=== PATIENT | female | born 1990 | race African-American/Black ===

== ENCOUNTER 2017-12-31 16:08 | Emergency (ER) | payer OTHER ==
[2017-12-31 16:22] VITALS: TEMP 97.8; BMI 33.0
--- NOTE | 2017-12-31 16:48 | PDOC ---
History of Present Illness - General Chief Complaint: Pain Stated Complaint: Chest Pain Time Seen by Provider: 12/31/17 16:22 History Source: Patient Exam Limitations: No Limitations - History of Present Illness Initial Comments: 12/31/17 16:42 27 yo female no sig pmh presents to the ED for 2 weeks of chest pain and 1 day of nausea and SORIANO. Of note, patient seen in an ED over 1 year ago, ekg done and told she had an "abnormal ekg" but does not remember any more details regarding the findings. Pt does not have a PCP and does not take any medications regularly. SORIANO is located on the forehead, described as intermittent throbbing without changes in vision or speech, weakness or sensory changes. CP is located substernally, described as pressure, non radiating, non exertion, no exacerbating findings. Pt states she has hx of anxiety, not formally diagnosed. No family hx of sudden cardiac Past History - Past Medical History Allergies/Adverse Reactions: Allergies Allergy/AdvReac Type Severity Reaction Status Date / Time No Known Allergies Allergy Verified 12/31/17 16:16 Home Medications: Ambulatory Orders NK [No Known Home Medication] 12/31/17 COPD: No - Suicide/Smoking/Psychosocial Hx Smoking History: Never smoked Review of Systems - Review of Systems Constitutional: No: Chills, Fever HEENTM: No: Blurred Vision Respiratory: No: Shortness of Breath Cardiac (ROS): Yes: Chest Pain ABD/GI: No: Constipated, Diarrhea : No: Burning, Dysuria, Flank Pain Musculoskeletal: No: Back Pain Neurological: Yes: Headache. No: Numbness, Paresthesia, Weakness, Unsteady Gait , Dizziness Psychiatric: Yes: Anxiety *Physical Exam - Vital Signs Last Vital Signs Temp Pulse Resp BP Pulse Ox 97.8 F 81 16 153/96 99 12/31/17 16:21 12/31/17 16:21 12/31/17 16:21 12/31/17 16:21 12/31/17 16:21 - Physical Exam General Appearance: Yes: Nourished, Appropriately Dressed. No: Apparent Distress HEENT: positive: EOMI Respiratory/Chest: positive: Lungs Clear, Normal Breath Sounds. negative: Crackles, Wheezing Cardiovascular: positive: Regular Rhythm, Regular Rate, S1, S2, Other (pain reproducible with palpation to sternum). negative: Edema, JVD, Murmur Vascular Pulses: Dorsalis-Pedis (R): 4+, Doralis-Pedis (L): 4+ Gastrointestinal/Abdominal: positive: Normal Bowel Sounds, Flat, Soft. negative : Pulsatile Mass, Distended, Guarding, Rebound, Tenderness Musculoskeletal: negative: CVA Tenderness Extremity: positive: Normal Capillary Refill Integumentary: positive: Normal Color, Dry, Warm Neurologic: positive: game designer II-XII NML intact, Fully Oriented, Alert, Normal Mood/ Affect, Normal Response, Motor Strength 5/5. negative: Facial Droop, Numbness, Sensory Deficit, Confused, Disoriented ED Treatment Course - LABORATORY CBC & Chemistry Diagram: 12/31/17 17:20 12/31/17 17:20 Medical Decision Making - Medical Decision Making 12/31/17 18:17 27 yo female no significant pmh presents to the ED with 1 day SORIANO and 2 weeks CP. PE: see note Vitals stable DDX: ACS (ekg normal, trops neg), PE (normal D-dimer), costochondritis, GERD UA negative, negative preg CXR normal, no acute findings (ED read) Patient admits to increased stress and hx of anxiety. CP and SORIANO Likely anxiety related, improved with medications. Patient SORIANO and CP improved after IV Tylenol and Reglan Pt does not have PCP, will give referral to resident clinic and D/C with strict return precautions and OTC tylenol for continued pain *DC/Admit/Observation/Transfer Diagnosis at time of Disposition: Head ache Qualifiers: Headache type: unspecified Headache chronicity pattern: unspecified pattern Intractability: not intractable Qualified Code(s): R51 - Headache Chest pain Qualifiers: Chest pain type: unspecified Qualified Code(s): R07.9 - Chest pain, unspecified - Discharge Dispostion Disposition: HOME Condition at time of disposition: Stable Decision to Admit order: No - Referrals Referrals: [facility] [place] [Provider Group] - Patient Instructions Printed Discharge Instructions: DI for Atypical Chest Pain, DI for Headache Additional Instructions: Please make appointment with the Primary Care Clinic office referred to you within the next 2 days. Please take over the counter Tylenol and Motrin for your headaches and chest pain as needed. Return to the Emergency room for new or worsening symptoms including but not limited to: changes in vision or speech , one sided weakness, severe chest pain. Thank you - Post Discharge Activity
[2017-12-31] MEDS ORDERED: IBUPROFEN 600 MG TABLET (FP) PO ONE (16:49)
--- NOTE | 2017-12-31 16:56 | PDOC ---
Attending Attestation - HPI HPI: 12/31/17 17:19 The patient is a 27 year old female no significant past medical history who presents to the ED for 2 weeks of intermittent chest pain, followed by an episode of diarrhea 3 days ago with 2 days of associated nausea, frontal headache, and decreased appetite. She states her chest pain comes and goes, localized to the middle of her chest, lasting 3-4 hours at a time without any exacerbating or alleviating factors of the pain. She reportedly has been eating "popcorn for the past few days and soup on Thursday, but not much else." She reports an episode of nonblood, watery stool on Thursday for which she took Earline Carroll and denies any recurring episodes of diarrhea. She reports a frontal headache which was intermittent yesterday, but constant since 7am today. She denies taking medications for chest pain or headache. She denies a history of chest pain in the past. - Physicial Exam PE: 12/31/17 17:39 GENERAL: The patient is in no acute distress. HEAD: Normal with no signs of trauma. EYES: PERRLA, EOMI, sclera anicteric, conjunctiva clear. ENT: Ears normal, nares patent, oropharynx clear without exudates. Moist mucous membranes. NECK: Normal range of motion, supple without lymphadenopathy, JVD, or masses. LUNGS: Breath sounds equal, clear to auscultation bilaterally. No wheezes, and no crackles. HEART:Regular rate and rhythm, normal S1 and S2 without murmur, rub or gallop. ABDOMEN: Soft, nontender, normoactive bowel sounds. No guarding, no rebound. No masses palpable. EXTREMITIES: Normal range of motion, no edema. No clubbing or cyanosis. No erythema, or tenderness. NEUROLOGICAL: Cranial nerves II through XII grossly intact. Normal speech. No focal neurological deficits. MUSCULOSKELETAL: Back non-tender to palpation, no CVA tenderness SKIN: Warm, Dry, normal turgor, no rashes or lesions noted. - Medical Decision Making 12/31/17 17:39 Documentation prepared by Andreina Thomas, acting as regional medical director for Caty Rodriguez MD <Andreina Thomas - Last Filed: 12/31/17 17:19> - Resident Resident Name: Richar Mccormick - ED Attending Attestation I have performed the following: I have examined & evaluated the patient, The case was reviewed & discussed with the resident, I agree w/resident's findings & plan, Exceptions are as noted - Medical Decision Making 27 yo F presenting to the ER with a complaint of chest pain, sharp, located in the center of the chest, no radiation, no shortness of breath Pain has been intermittent, lasting several hours and then self resolving Not related to movement or deep breath No recent travel No heavy lifting No OCPs No tobacco use Pt had nausea and diarrhea four days ago Pt had diarrhea three days ago Pt had a headache that began yesterday, gradual onset, right frontal, no diffuse pain No neck pain or stiffness Pt is wearing sunglasses but she has been doing this for "a while" because she has light sensitivity (even before getting this headache) Pt is in the ER because her mother and aunt suggested that she come to the ER DD: Chest pain - ACS, PE, Pneumothorax, Pleural effusion, Pneumonia Headache - tension, migraine, unlikely SAH or intracranial mass EKG - SR rate of 63bpm, axis nml, no st elevation or depression, (+) artifact at baseline, t wave inverted v2 Laboratory Tests 12/31/17 12/31/17 12/31/17 17:20 17:20 17:20 WBC 5.1 Hgb 12.8 Hct 37.4 Plt Count 242 D-Dimer 474 BUN 8 Creatinine 0.8 Creatine Kinase 102 Troponin I < 0.02 Urine Ketones Urine Blood Ur Leukocyte Esterase Urine HCG, Qual 12/31/17 12/31/17 18:00 18:00 WBC Hgb Hct Plt Count D-Dimer BUN Creatinine Creatine Kinase Troponin I Urine Ketones Negative Urine Blood Negative Ur Leukocyte Esterase Negative Urine HCG, Qual Negative 12/31/17 18:24 Trop neg, D dimer negative CXR - negative Pt reports complete pain relief Requesting food Pt po challenged in the ER with no nausea Will discharge to home <Caty Rodriguez - Last Filed: 12/31/17 18:42>
[2017-12-31] MEDS ORDERED: METOCLOPRAMIDE HCL INJECTION 10 MG/2 ML VIAL IVPUSH ONE (17:05)
[2017-12-31] MEDS ORDERED: ACETAMINOPHEN 1000 MG/100 ML VIAL (NON FORMULARY) IVPB ONE (17:05)
[2017-12-31] MEDS ORDERED: METOCLOPRAMIDE HCL INJECTION 10 MG/2 ML VIAL ONE (17:15)
[2017-12-31] MEDS ORDERED: ACETAMINOPHEN INJECTION 100 ML IVPB ONE (17:15)
[2017-12-31 17:32] LABS: BASO % 0.7 % (0-2.0); EOS % 0.6 % (0-4.5); HEMATOCRIT 37.4 % (32.4-45.2); HEMOGLOBIN 12.8 GM/dL (10.7-15.3); LYMPH % 51.6 % (8-40); MCH 28.8 pg (25.7-33.7); MCHC 34.1 g/dl (32.0-36.0); MEAN CELL VOLUME 84.4 fl (80-96); MEAN PLT VOLUME 8.4 fl (7.5-11.1); MONO % 6.5 % (3.8-10.2); NEUT % 40.6 % (42.8-82.8); PLATELET COUNT 242 K/MM3 (134-434); RBC 4.43 M/mm3 (3.60-5.2); RDW 15.3 % (11.6-15.6); WHITE BLOOD COUNT 5.1 K/mm3 (4.0-10.0)
[2017-12-31 17:57] LABS: ALBUMIN 3.6 g/dl (3.4-5.0); ALK PHOS 76 U/L (45-117); ANION GAP 9 MMOL/L (8-16); BILIRUBIN,TOTAL 0.4 mg/dL (0.2-1); BLOOD UREA NITROGEN 8 mg/dL (7-18); CALCIUM 8.5 mg/dL (8.5-10.1); CHLORIDE 106 mmol/L (98-107); CO2 26 mmol/L (21-32); CREATININE 0.8 mg/dL (0.55-1.3); GLUCOSE,RANDOM 84 mg/dL (74-106); POTASSIUM 3.7 mmol/L (3.5-5.1); SGOT/AST 20 U/L (15-37); SGPT/ALT 21 U/L (13-61); SODIUM 140 mmol/L (136-145); TOT PROT 8.1 g/dl (6.4-8.2)
[2017-12-31 18:18] LABS: URINE APPEARANCE SLCLOUDY; URINE BILIRUBIN NEGATIVE (<2.0 mg/dL); URINE COLOR LTYELLOW; URINE GLUCOSE (UA) NEGATIVE (NEGATIVE); URINE KETONE NEGATIVE (NEGATIVE); URINE LEUK ESTERASE NEGATIVE (NEGATIVE); URINE NITRITE NEGATIVE (NEGATIVE); URINE PROTEIN NEGATIVE (NEGATIVE); URINE UROBILINOGEN NEGATIVE mg/dL (0.2-1.0)
[2017-12-31 19:11] VITALS: BP 108/63; PULSE 76
--- NOTE | 2018-01-01 10:01 | EKG ---
Test Reason : Blood Pressure : / mmHG Vent. Rate : 063 BPM Atrial Rate : 063 BPM P-R Int : 140 ms QRS Dur : 082 ms QT Int : 390 ms P-R-T Axes : 016 067 026 degrees QTc Int : 399 ms POOR DATA QUALITY, INTERPRETATION MAY BE ADVERSELY AFFECTED NORMAL SINUS RHYTHM WITH SINUS ARRHYTHMIA POSSIBLE LEFT ATRIAL ENLARGEMENT NONSPECIFIC ST AND T WAVE ABNORMALITY ABNORMAL ECG NO PREVIOUS ECGS AVAILABLE Confirmed by TRISH LINO, MATEO ([id number]) on 01/01/2018 10:00:48 AM Referred By: Confirmed By:MATEO CHAMBERS MD
== END 2017-12-31 19:15 | disposition home or self-care (01) ==
LOC: JER 16:08
PROC: 3E033NZ Introduction of Analgesics, Hypnotics, Sedatives into Peripheral Vein, Percutaneous Approach (ICD-10-PCS; principal; 2017-12-31)
PROC: 3E033GC Introduction of Other Therapeutic Substance into Peripheral Vein, Percutaneous Approach (ICD-10-PCS; 2017-12-31)
DX: R07.9 Chest pain, unspecified (principal); R51 Headache
CPT/HCPCS: 36415; 71046-TC-FY; 80053; 81003; 82550; 84484; 84703; 85025; 85379; 93005; 93010; 99284-25; J0131

== ENCOUNTER 2019-10-29 19:40 | Emergency (ER) | payer OTHER ==
[2019-10-29 19:46] VITALS: BMI 39.4
--- OUTSIDE RECORDS SUMMARY | 2019-10-29 19:52 | XMS ---
:1990 Author Organization [facility] Support Name Relationship Address Phone LICENSE LOGISTIC Unavailable [address] [place] [address] [place] [address] [phone] [place] [address] JEFF ELIZALDE MOTHER [address] [place] [address] Re-disclosure Warning The records that you are about to access may contain information from federally- assisted alcohol or drug abuse programs. If such information is present, then the following federally mandated warning applies: This information has been disclosed to you from records protected by federal confidentiality rules (42 CFR part 2). The federal rules prohibit you from making any further disclosure of this information unless further disclosure is expressly permitted by the written consent of the person to whom it pertains or as otherwise permitted by 42 CFR part 2. A general authorization for the release of medical or other information is NOT sufficient for this purpose. The Federal rules restrict any use of the information to criminally investigate or prosecute any alcohol or drug abuse patient.The records that you are about to access may contain highly sensitive health information, the redisclosure of which is protected by Article 27-F of the [place] Public Health law. If you continue you may haveaccess to information: Regarding HIV / AIDS; Provided by facilities licensed or operated by the [place] Office of Mental Health; or Provided by the [place] Office for People With Developmental Disabilities. If such information is present, then the following [place] [facility] mandated warning applies: This information has been disclosed to you from confidential records which are protected by state law. State law prohibits you from making any further disclosure of this information without the specific written consent of the person to whom it pertains, or as otherwise permitted by law. Any unauthorized further disclosure in violation of state law may result in a fine or detention sentence or both. A general authorization for the release of medical or other information is NOT sufficient authorization for further disclosure. Insurance Providers Payer name Policy type Policy ID Covered Covered constitution party's Policy P aliya / Coverage constitution party ID relationship to [employer] type [id number] HEALTH CARE HMO/POS/EPO
[2019-10-29] MEDS ORDERED: ONDANSETRON 4 MG/2 ML VIAL IVPUSH ONE (20:37)
[2019-10-29] MEDS ORDERED: MECLIZINE HCL 25 MG TABLET (FP) PO ONE (20:37)
[2019-10-29] MEDS ORDERED: SODIUM CHLORIDE 0.9% 500 ML INFUS.BAG IV ONE (20:39)
[2019-10-29] MEDS ORDERED: MECLIZINE HCL 25 MG TABLET (FP) ONE (20:42)
[2019-10-29 20:50] LABS: BASO % 0.3 % (0-2.0); EOS % 0.7 % (0-4.5); HEMATOCRIT 37.1 % (32.4-45.2); LYMPH % 44.5 % (8-40); MCH 27.2 pg (25.7-33.7); MCHC 32.4 g/dl (32.0-36.0); MEAN CELL VOLUME 84.1 fl (80-96); MEAN PLT VOLUME 8.5 fl (7.5-11.1); NEUT % 46.5 % (42.8-82.8); PLATELET COUNT 292 K/MM3 (134-434); RBC 4.41 M/mm3 (3.60-5.2); RDW 16.3 % (11.6-15.6); WHITE BLOOD COUNT 6.2 K/mm3 (4.0-10.0)
--- NOTE | 2019-10-29 20:52 | PDOC ---
History of Present Illness - General Chief Complaint: Lightheaded Stated Complaint: VOMITING AND DIZZENESS Time Seen by Provider: 10/29/19 20:13 History Source: Patient Exam Limitations: No Limitations - History of Present Illness Initial Comments: 10/29/19 20:42 29F PMH HTN presenting with dizziness described as room spinning that is worse and more consistent today than previous. Has had similar but less severe symptoms on/off since June but has not been eval'd out of fear of covid. Episodes are related to changing position, particularly sitting up, and typically transient. Today symptoms have persisted throughout the day and accompanied by nausea and vomiting. Has not tried any medications or alleviated treatments. Denies f/c, headaches, chagnes in vision, hearing, numbness, tingling, weakness, vaginal bleeding, discharge, cough, sore throat, runny nose. Past History - Medical History Allergies/Adverse Reactions: Allergies Allergy/AdvReac Type Severity Reaction Status Date / Time No Known Allergies Allergy Verified 10/29/19 19:46 Home Medications: Ambulatory Orders Meclizine HCl 25 mg PO BID PRN #20 tablet 10/29/19 Ondansetron [Zofran *Odt*] 4 mg SL TID PRN #21 od.tablet 10/29/19 COPD: No - Reproductive History Is Patient Now?: No - Psycho-Social/Smoking History Smoking History: Never smoked - Substance Abuse Hx (Audit-C & DAST Scrn) How often the patient has a drink containing alcohol: 2-4 times / month Score: In Men: 4 or > Positive; In Women: 3 or > Positive: 2 Screen Result (Pos requires Nsg. Audit-10AR): Negative Review of Systems - Review of Systems Comments:: 10/30/19 08:48 CONSTITUTIONAL: Denies F / C HEENT: + dizziness. Denies headache, changes in vision / hearing, diplopia, blurry vision, sore throat, rhinorrhea RESP: Denies SOB, cough CARD: Denies chest pain, palpitations GI: + N / V : Denies dysuria, hematuria NEURO: Denies numbness, tingling, weakness MSK: Denies back pain SKIN: Denies rashes *Physical Exam - Vital Signs Last Vital Signs Temp Pulse Resp BP Pulse Ox 97 F L 85 18 148/97 99 10/29/19 19:42 10/29/19 19:42 10/29/19 19:42 10/29/19 19:42 10/29/19 19:42 - Physical Exam 10/30/19 08:48 GEN: Well appearing, NAD, comfortable. AAOx3. HEENT: NC/AT, EOMI, PERRL, CN II - XII grossly intact. No facial asymmetry. Moist mucous membranes. Normal voice. Supple neck w/ FROM. CV: S1/S2, RRR, no m/r/g LUNG: CTAB, no wheezes, crackles, rales, rhonchi. GI: Soft, ndnt, +BS, no guarding, no rebound. No masses. Neg CVAT b/l. MSK: No obvious deformities of all extremities. SKIN: Warm, dry, no rashes appreciated. PSYCH: Normal mood and affect. NEURO: Moving all extremities well. 5/5 strength UE and LE b/l. Symmetric sensation. Right sided kasia-hallpike testing induced symptoms; no nystagmus; patient proceeded to vomit. ED Treatment Course - LABORATORY CBC & Chemistry Diagram: 10/29/19 20:47 10/29/19 20:47 Medical Decision Making - Medical Decision Making 10/30/19 08:48 29F w/ episodic position dependent vertigo since June 2019 that is worse today w/ nausea and vomiting. Neuro intact. Reproducible symptoms with kasia-hallpike to the right. Likely BPPV; unlikely intracranial pathology given H&P; less likely metabolic issue or - CBC, CMP, - Symptomatic control - reassess, PO challenge, ambulate - plan to DC home w/ meds and neuro f/u 10/29/19 22:07 Pt feeling significant relief of symptoms s/p meds PO tolerant Ambulates w/ normal gait Discussed plan w/ patient; amenable to discharge w/ neuro f/u; return precautions provided, Rx sent. Questions and concerns addressed. Discharge - Discharge Information Problems reviewed: Yes Clinical Impression/Diagnosis: Vertigo Condition: Stable Disposition: HOME - Admission No - Additional Discharge Information Prescriptions: Meclizine HCl 25 mg PO BID PRN #20 tablet PRN Reason: Vertigo Ondansetron [Zofran *Odt*] 4 mg SL TID PRN #21 od.tablet PRN Reason: Nausea - Follow up/Referral Referrals: Miki Mills MD [Staff Physician] - - Patient Discharge Instructions Patient Printed Discharge Instructions: Benign Paroxysmal Positional Vertigo Additional Instructions: We are sending medications to your pharmacy that will help with your symptoms. Please take as directed when you are experiencing symptoms. Follow up with your Primary Care Doctor regarding this ED visit in the next 14 days. Follow up with Neurology in the next 14 days. We have referred you to Dr. Mills, call the number attached to schedule an appointment. Return to the nearest Emergency Department if you experience new or worsening symptoms - Post Discharge Activity Work/Back to School Note: Back to Work
[2019-10-29 21:18] LABS: ALBUMIN 3.5 g/dl (3.4-5.0); BILIRUBIN,TOTAL 0.3 mg/dL (0.2-1); BLOOD UREA NITROGEN 12.2 mg/dL (7-18); CALCIUM 9.1 mg/dL (8.5-10.1); CREATININE 0.9 mg/dL (0.55-1.3); POTASSIUM 3.9 mmol/L (3.5-5.1); TOT PROT 8.6 g/dl (6.4-8.2)
--- NOTE | 2019-10-29 22:17 | PDOC ---
Documentation entered by Elena Lao SCRIBE, acting as scribe for Peg Trejo MD. Peg Trejo MD: This documentation has been prepared by the giovanniibShilo allred Lincy, SCRIBE, under my direction and personally reviewed by me in its entirety. I confirm that the documentation accurately reflects all work, treatment, procedures, and medical decision making performed by me. Attending Attestation - Resident Resident Name: Myke Jimenez - HPI HPI: 10/29/19 21:22 The patient is a 29-year-old female with a past medical history significant for HTN who presents to the emergency department with dizziness. The patient reports several weeks of dizziness with the change of position, that worsened today with more frequent episodes, associated with nausea and vomiting. Denies taking any medication for the symptoms. Denies fever, chills, headache, visual changes. Denies any URI symptoms. - Physicial Exam PE: 10/29/19 21:50 10/29/19 21:53 Gen: alert, NAD HEENT: normocephalic, atraumatic NEuro: alert and oriented x 3, CN grossly intact. - Medical Decision Making 10/29/19 21:54 Pt presents to the ED complaining of vertigo made worse by turning her head. Has been experiencing mild and transient intermittent symptoms for three weeks, but symptoms became severe today. Feels greatly improved after meclizine. Very little concern for central vertigo. Will discharge home with ENT follow up. Discharge - Discharge Information Problems reviewed: Yes Clinical Impression/Diagnosis: Vertigo Condition: Stable Disposition: HOME - Additional Discharge Information Prescriptions: Meclizine HCl 25 mg PO BID PRN #20 tablet PRN Reason: Vertigo Ondansetron [Zofran *Odt*] 4 mg SL TID PRN #21 od.tablet PRN Reason: Nausea - Follow up/Referral Referrals: Miki Mills MD [Staff Physician] - - Patient Discharge Instructions Patient Printed Discharge Instructions: Benign Paroxysmal Positional Vertigo Additional Instructions: We are sending medications to your pharmacy that will help with your symptoms. Please take as directed when you are experiencing symptoms. Follow up with your Primary Care Doctor regarding this ED visit in the next 14 days. Follow up with Neurology in the next 14 days. We have referred you to Dr. Mills, call the number attached to schedule an appointment. Return to the nearest Emergency Department if you experience new or worsening symptoms - Post Discharge Activity Work/Back to School Note: Back to Work
[2019-10-29 22:19] VITALS: BP 137/93; PULSE 72; TEMP 98.6
== END 2019-10-29 22:21 | disposition home or self-care (01) ==
LOC: JER 19:40
PROC: 3E033GC Introduction of Other Therapeutic Substance into Peripheral Vein, Percutaneous Approach (ICD-10-PCS; principal; 2019-10-29)
DX: H81.10 Benign paroxysmal vertigo, unspecified ear (principal)
CPT/HCPCS: 36415; 80053; 84703; 85025; 99284-25